=== PATIENT | female | born 1975 | race Caucasian/White ===

== ENCOUNTER → 2017-01-15 | Outpatient (CLI) | payer OTHER ==
--- NOTE | 2017-01-16 09:07 | CT ---
CT abdomen without contrast Indication: Right flank pain Technique: 5 mm axial images of the abdomen and pelvis without IV contrast administration. Findings: Lung bases are clear. Given the constraints of a noncontrast examination no abnormality tatum ntified within the liver, gallbladder, bile ducts, spleen, pancreas, adrenal glands or kidneys. Urina ry bladder is normal. No pelvic or adnexal mass identified. There is suspected small likely physiolog ic bilateral ovarian cysts. The rectum and colon are normal. The appendix is normal. No inflammatory change or fluid within the right lower quadrant or pelvis. Abdominal aorta is normal in caliber. Revi ew of bone windows demonstrates no acute osseous abnormality Impression: No acute inflammatory process identified within the abdomen or pelvis given limitations o f a noncontrast examination. Reported By:
== END ==
LOC: RAD 16:08
PROVIDERS: ATTEND Internal Medicine
DX: N20.0 Calculus of kidney (principal); R31.9 Hematuria, unspecified
CPT/HCPCS: 74176